=== PATIENT | female | born 1985 | race Caucasian/White ===

== ENCOUNTER 2017-03-10 23:19 | Emergency (ER) | payer SELFPAY ==
[2017-03-11] MEDS ORDERED: NEOMY SULF/POLYMYX B SULF/HC 100 DROP BTL RIGHT EAR ONE (00:46)
[2017-03-11] MEDS ORDERED: KETOROLAC TROMETHAMINE 60 MG/2 ML VIAL IM ONE ×2 (00:52→00:55)
--- OUTSIDE RECORDS SUMMARY | 2017-03-11 00:53 | XMS REPORT | Continuity of Care Document ---
:1985 Author Organization [facility] ([facility]) [place] [address] Phone [phone] Care Team Providers Name Role Phone Miguel Pabon Primary Care Provider [phone] Source Comments This disclosure is being made pursuant to the Care Everywhere program, applicable federal and state laws, and may not contain all informaitonavailable regarding this patient.[facility] ([facility]) Active Allergies and Adverse Reactions No Known Allergies Current Medications No known medications Active Problems Not on file Social History Tobacco Use Types Packs/Day Years Used Date Never Assessed Last Filed Vital Signs Vital Sign Reading Time Taken Blood Pressure 119/73 05/31/2015 1:58 PM CDT Pulse 80 05/31/2015 1:58 PM CDT Temperature 36.6 C (97.9 F) 05/31/2015 10:38 AM CDT Respiratory Rate - - Height - - Weight - - Body Mass Index - - Oxygen Saturation 98% 05/31/2015 10:38 AM CDT Plan of Care Health Maintenance Due Date Last Done Comments Hepatitis B Vaccine (1 of 3 - Primary Series) 1985 Tdap Vaccine 1998 Cervical Cancer Screening 2005 Lipid Disorder Screening 2005 MMR Vaccine 2005 Td Vaccine 2005 Varicella Vaccine (1 of 2 - Adult - No Evidence of 2005 Immunity) Influenza Vaccine: Seasonal (#1) 06/17/2016 Results from Last 3 Months Not on file
[2017-03-11] MEDS ORDERED: NEOMY SULF/POLYMYX B SULF/HC 100 DROP BTL ONE (00:56)
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
[2017-03-11 01:22] VITALS: BP 128/72
== END 2017-03-11 01:20 | disposition home or self-care (01) ==
LOC: ER 23:19
DX: H60.391 Other infective otitis externa, right ear (principal); F17.210 Nicotine dependence, cigarettes, uncomplicated